=== PATIENT | female | born 1985 | race Caucasian/White ===

== ENCOUNTER 2017-12-05 12:59 | Emergency (ER) | payer SELFPAY ==
[2017-12-05 15:05] LABS: #Basophils 0.1 thou/uL (0.0-0.2); #Eosinphils 0.4 thou/uL (0.0-0.7); #Lymphocytes 3.2 thou/uL (1.20-3.40); #Monocytes 0.6 thou/uL (0.11-0.59); #Neutrophils 5.4 thou/uL (1.40-6.50); %Basophils 1.3 % (0.0-1.0); %Eosinophils 3.8 % (0.0-10.0); %Lymphocytes 32.5 % (21.0-51.0); %Monocytes 6.3 % (0.0-10.0); %Neutrophils 56.1 % (42.0-75.0); Mean Corpuscular HGB CONC 34.1 g/dL (32.0-36.0); Mean Corpuscular Hemoglobin 30.8 pg (27.0-31.0); Mean Corpuscular Volume 90.5 fl (81.0-99.0); Mean Platelet Volume 7.5 fL (7.4-10.4); Platelet Count 296 thou/uL (130-400); RBC Distribution Width 12.2 % (11.5-14.5); White Blood Cell (WBC) Count 9.7 thou/uL (4.8-10.8)
[2017-12-05 15:26] LABS: ALT (SGPT) 23 U/L (8-55); AST (SGOT) 17 U/L (5-34); Albumin 4.2 g/dL (3.5-5.0); Alkaline Phosphatase 68 U/L (40-150); Anion Gap 12 mmol/L (10-20); BUN (Urea Nitrogen) 13 mg/dL (7.0-18.7); Bilirubin, Total 0.5 mg/dL (0.2-1.2); Calc. Creatinine Clearance 0 mL/min (70-130); Calcium 9.4 mg/dL (7.8-10.44); Carbon Dioxide 23 mmol/L (22-29); Chloride 108 mmol/L (98-107); Estimated GFR-MDRD 83; Globulin 3.6 g/dL (2.4-3.5); Glucose 98 mg/dL (70-105); Potassium 4.4 mmol/L (3.5-5.1); Protein, Total 7.8 g/dL (6.0-8.3); Sodium 139 mmol/L (136-145)
[2017-12-05 18:16] LABS: Bilirubin Small (Negative); Blood, Urine Large (Negative); Clarity CLOUDY (Clear); Glucose, Urine (Dipstick) Negative (Negative); Leukocyte Small (Negative); Nitrite Negative (Negative); Protein, Urine (Dipstick) 30 mg/dL (Neg-Trace); Specific Gravity, Urine 1.035 (1.002-1.036); Urobilinogen 0.2 mg/dL (0.2-1.0)
[2017-12-05 18:17] LABS: Bacteria/HPF 1+ HPF (None Seen); Pathc Cast-AUWi Flag 2.16 (0-2.49); Pregnancy Test - Urine (BHCG) Negative (Negative); Pregu Control Background? CLEAR/WHITE (CLR/WHITE); Pregu Control Bar Appear? YES (CONTROL BAR); Specific Gravity 1.035 (1.002-1.036)
[2017-12-05 18:25] LABS: Yeast-AUWi Flag 199.2 (0-25.0)
[2017-12-05 18:26] LABS: Amphetamine Not Detected (NotDetected); Barbiturates Screen Not Detected (NotDetected); Benzodiazepine Screen Detected (NotDetected); Cocaine Metabolite Screen Not Detected (NotDetected); Medtox Control Line Valid? VALID (VALID); Medtox Reader # READER 1; Methadone Not Detected (NotDetected); Methamphetamine Not Detected (NotDetected); Opiate Screen Not Detected (NotDetected); Oxycodone Screen Not Detected (NotDetected); Phencyclidine (PCP) Not Detected (NotDetected); THC/Cannabinoid Screen Detected (NotDetected); Tricyclic Screen Detected (NotDetected)
[2017-12-05 18:30] LABS: Hyaline Casts/LPF 0-3 HYALINE CAST LPF (0-3 Hyaline); RBC/HPF 21-50 HPF (0-3)
[2017-12-05 18:31] LABS: Yeast-All Forms None Seen HPF (None Seen)
--- NOTE | 2017-12-09 13:14 | EKG ---
Test Reason : Blood Pressure : / mmHG Vent. Rate : 068 BPM Atrial Rate : 068 BPM P-R Int : 142 ms QRS Dur : 086 ms QT Int : 390 ms P-R-T Axes : 029 077 058 degrees QTc Int : 414 ms Normal sinus rhythm Normal ECG Confirmed by JET JUAREZ MD ([id number]), art editor MARYURI LAWTON ([id number]) on 12/09/2017 1:14:18 PM Referred By: Confirmed By:JET JUAREZ MD
--- NOTE | 2017-12-09 13:14 | EKG ---
Test Reason : Blood Pressure : / mmHG Vent. Rate : 080 BPM Atrial Rate : 080 BPM P-R Int : 138 ms QRS Dur : 086 ms QT Int : 368 ms P-R-T Axes : 045 086 061 degrees QTc Int : 424 ms Normal sinus rhythm Normal ECG Confirmed by JET JUAREZ MD ([id number]), desk editor MARYURI LAWTON ([id number]) on 12/09/2017 1:14:13 PM Referred By: Confirmed By:JET JUAREZ MD
== END 2017-12-05 18:43 | disposition home or self-care (01) ==
LOC: ERS 12:59
DX: R55 Syncope and collapse (principal); G43.909 Migraine, unspecified, not intractable, without status migrainosus; E66.9 Obesity, unspecified; F41.9 Anxiety disorder, unspecified; F31.9 Bipolar disorder, unspecified; F17.210 Nicotine dependence, cigarettes, uncomplicated; Z79.899 Other long term (current) drug therapy; Z87.442 Personal history of urinary calculi
CPT/HCPCS: 36415; 80053; 80306; 81003; 81015; 81025; 84146; 85025; 93005

== ENCOUNTER 2018-02-21 13:48 | Emergency (ER) | payer SELFPAY ==
[2018-02-21 14:52] LABS: #Basophils 0.1 thou/uL (0.0-0.2); #Eosinphils 0.4 thou/uL (0.0-0.7); #Lymphocytes 2.9 thou/uL (1.20-3.40); #Monocytes 0.5 thou/uL (0.11-0.59); #Neutrophils 4.4 thou/uL (1.40-6.50); %Basophils 1.4 % (0.0-1.0); %Eosinophils 4.7 % (0.0-10.0); %Lymphocytes 34.7 % (21.0-51.0); %Monocytes 6.5 % (0.0-10.0); %Neutrophils 52.8 % (42.0-75.0); Hemoglobin 16.1 g/dL (12.0-16.0); Mean Corpuscular HGB CONC 34.2 g/dL (32.0-36.0); Mean Corpuscular Hemoglobin 30.7 pg (27.0-31.0); Mean Corpuscular Volume 89.7 fl (81.0-99.0); Mean Platelet Volume 8.3 fL (7.4-10.4); Platelet Count 286 thou/uL (130-400); RBC Distribution Width 12.1 % (11.5-14.5); Red Blood Cell (RBC) Count 5.26 mill/uL (4.20-5.40); White Blood Cell (WBC) Count 8.4 thou/uL (4.8-10.8)
[2018-02-21 15:14] LABS: ALT (SGPT) 28 U/L (8-55); AST (SGOT) 21 U/L (5-34); Albumin 4.1 g/dL (3.5-5.0); Alkaline Phosphatase 70 U/L (40-150); Anion Gap 8 mmol/L (10-20); BUN (Urea Nitrogen) 8 mg/dL (7.0-18.7); Bilirubin, Total 0.3 mg/dL (0.2-1.2); Calc. Creatinine Clearance 0 mL/min (70-130); Carbon Dioxide 24 mmol/L (22-29); Chloride 108 mmol/L (98-107); Estimated GFR-MDRD 90; Globulin 3.5 g/dL (2.4-3.5); Glucose 91 mg/dL (70-105); Potassium 4.2 mmol/L (3.5-5.1); Protein, Total 7.6 g/dL (6.0-8.3); Sodium 136 mmol/L (136-145)
[2018-02-21 15:25] LABS: Bilirubin Negative (Negative); Blood, Urine Negative (Negative); Clarity CLEAR (Clear); Glucose, Urine (Dipstick) Negative (Negative); Leukocyte Negative (Negative); Nitrite Negative (Negative); Protein, Urine (Dipstick) Negative (Neg-Trace); Urobilinogen 0.2 mg/dL (0.2-1.0)
[2018-02-21 15:27] LABS: Pregnancy Test - Urine (BHCG) Negative (Negative); Pregu Control Background? CLEAR/WHITE (CLR/WHITE); Pregu Control Bar Appear? YES (CONTROL BAR)
[2018-02-21] MEDS ORDERED: Acetaminophen 500 MG TAB ONE (17:05)
[2018-02-21] MEDS ORDERED: methylPREDNISolone Sod Succ/PF 125 MG/2 ML VIAL ONE (17:06)
--- NOTE | 2018-02-21 17:07 | CT ---
CT BRAIN 02/21/18 HISTORY: Headache. Noncontrast enhanced CT images of the brain is obtained. CT images of the brain demonstrate the brain to be unremarkable. No evidence of intracranial masses, hemorrhages, strokes or contusions seen. the sinuses are well aerated. No evidence of acute intracran ial abnormality seen. IMPRESSION: Normal CT brain. POS: [facility]
[2018-02-21] MEDS ORDERED: Metoclopramide HCl 10 MG/2 ML VIAL ONE (17:15)
== END 2018-02-21 19:23 | disposition home or self-care (01) ==
LOC: ERS 13:48
DX: G43.909 Migraine, unspecified, not intractable, without status migrainosus (principal); E66.9 Obesity, unspecified; F31.9 Bipolar disorder, unspecified; F41.9 Anxiety disorder, unspecified; F17.210 Nicotine dependence, cigarettes, uncomplicated; Z79.899 Other long term (current) drug therapy
CPT/HCPCS: 36415; 70450; 80053; 81003; 81025; 85025; 85652; 86140; 96365; 96375; J2765; J2930

== ENCOUNTER 2022-12-30 07:59 | Outpatient (CLI) | payer BC | END 2022-12-30 08:00 | disposition home or self-care (01) | LOC: TBSIIMAG 07:59 | PROVIDERS: ATTEND Neurological Surgery | DX: M51.26 Other intervertebral disc displacement, lumbar region (principal); M51.27 Other intervertebral disc displacement, lumbosacral region | CPT/HCPCS: 72148 ==

== ENCOUNTER 2024-02-25 13:04 | Observation (INO) | payer BC ==
[~2024-02-25 13:04] MED LIST: Iopamidol-370 76% 500 ML MDV (1 ML CHARGE) ONE
[2024-02-25] MEDS ORDERED: Prochlorperazine 10 MG/2 ML VIAL ONE (13:25)
[2024-02-25] MEDS ORDERED: LORazepam 2 MG/ML SYR.(CARPUJECT) ONE (13:25)
[2024-02-25 13:44] LABS: %Basophils 0.9 % (0.0-1.0); %Lymphocytes 20.9 % (21.0-51.0); %Neutrophils 69.9 % (42.0-75.0); Hematocrit 38.3 % (36.0-47.0); Hemoglobin 12.8 g/dL (12.0-16.0); Mean Corpuscular HGB CONC 33.4 g/dL (32.0-36.0); Mean Corpuscular Hemoglobin 27.2 pg (27.0-31.0); Mean Corpuscular Volume 81.5 fL (78.0-98.0); Mean Platelet Volume 10.7 fL (7.4-10.4); Platelet Count 301 10x3/uL (130-400); RBC Distribution Width 14.8 % (11.5-14.5)
[2024-02-25 13:46] LABS: Actual Bicarbonate (HCO3v) 18.6 mEq/L (22-28); Base Excess -2.8 mEq/L (-2.0 to +3.0); Calcium, Ionized (venous) 1.13 mmol/L (1.16-1.32); Chloride (VBG) 104 mmol/L (98-106); Hematocrit-VBG 41 % (36.0-47.0); Sodium 141 mmol/L (133-146); pH (venous) 7.499 (7.32-7.43)
[2024-02-25 13:54] LABS: BHCG - Serum Negative (NEGATIVE); Pregs Control Background? CLEAR/WHITE (CLR/WHITE); Pregs Control Bar Appear? YES (CONTROL BAR)
[2024-02-25 14:03] LABS: ALT (SGPT) 106 U/L (8-55); AST (SGOT) 92 U/L (5-34); Albumin 3.9 g/dL (3.5-5.0); Alkaline Phosphatase 77 U/L (40-110); Anion Gap 18 mmol/L (10-20); BUN (Urea Nitrogen) 9 mg/dL (7.0-18.7); Bilirubin, Total 0.5 mg/dL (0.2-1.2); Calc. Creatinine Clearance 0 mL/min (70-130); Carbon Dioxide 18 mmol/L (22-29); Chloride 108 mmol/L (98-107); Estimated GFR 83; Globulin 4.2 g/dL (2.4-3.5); Glucose 145 mg/dL (70-105); Magnesium 1.7 mg/dL (1.6-2.6); Potassium 3.7 mmol/L (3.5-5.1); Protein, Total 8.1 g/dL (6.0-8.3); Sodium 140 mmol/L (136-145)
[2024-02-25 14:04] LABS: Troponin I Less than 0.010 ng/mL (< 0.028)
[2024-02-25 14:05] LABS: INR-International Normal Ratio 1.1; Prothrombin Time 13.9 sec (12.0-14.7)
[2024-02-25 14:26] LABS: D-Dimer Test 0.35 mcg/mL (0.27-0.43)
[2024-02-25] MEDS ORDERED: Morphine 4 MG/ML VIAL ONE (14:30)
[2024-02-25 16:41] LABS: Lactic Acid 1.3 mmol/L (0.5-2.2)
[2024-02-25] MEDS ORDERED: Guaifenesin DM 100-10/5 ML UDCUP PO PRN (17:31)
[2024-02-25] MEDS ORDERED: Ondansetron ODT 4 MG TAB PO PRN (17:31)
[2024-02-25] MEDS ORDERED: Calcium Carbonate 500 MG ChewTAB PO PRN (17:31)
[2024-02-25] MEDS ORDERED: Dicyclomine 20 MG TAB PO PRN (18:40)
[2024-02-25] MEDS ORDERED: HumaLOG 300 UNITS/3 ML VIAL SC PRN ×2 (18:43)
[2024-02-25] MEDS ORDERED: Dextrose 50% Abboject 50 ML SYRINGE SLOW IVP PRN (18:43)
[2024-02-25] MEDS ORDERED: Glucagon 1 MG/ML KIT IM PRN (18:43)
[2024-02-25] MEDS ORDERED: Dextrose 5% in Water 1,000 ML IV PRN (18:43)
[2024-02-25] MEDS ORDERED: RISANKIZUMAB RZAA 150 MG/ML SQ SCH (18:45)
[2024-02-25] MEDS ORDERED: Ondansetron ODT 8 MG TAB PO PRN (18:48)
[2024-02-25 18:51] LABS: Cardiac Risk 4.1 (Less than 4.5); Cholesterol 132 mg/dl (< 200 Desired); HDL Cholesterol 32 mg/dL (>60 Neg Risk); LDL Cholesterol, Calculated 71 mg/dL; Magnesium 1.8 mg/dL (1.6-2.6); Phosphorus 3.8 mg/dL (2.3-4.7); Triglycerides 144 mg/dL (Less than 150)
[2024-02-25 18:57] LABS: Troponin I Less than 0.010 ng/mL (< 0.028)
[2024-02-25 19:07] LABS: Hemoglobin A1c 6.8 % (4.0-6.0)
[2024-02-25 19:41] LABS: Acetaminophen Less than 10 mcg/mL (10.0-30.0); Alcohol Less than 10.0 mg/dL (Less than 10); Salicylate Less than 8.0 mg/dL (15.0-30.0)
[2024-02-25 20:03] LABS: HBCM Index 0.09 S/CO (0-0.79); HBsAg Index 0.22 S/CO (0-0.99); Hep A IgM AB NONREACTIVE (NonReactive); Hep A IgM S/CO 0.19 S/CO (0-0.79); Hep B Surf Ag NONREACTIVE S/CO (NonReactive); Hep C IgG Ab NONREACTIVE S/CO (NonReactive); Hep C Index 0.13 S/CO (0-0.79); Hepatitis B Core IgM Abs NONREACTIVE S/CO (NonReactive)
[2024-02-25 21:54] VITALS: BMI 37.2
[2024-02-25] MEDS: Amitriptyline HCl 100 MG TAB PO SCH (23:12)
[2024-02-25] MEDS: Lactated Ringer's 1,000 ML IV SCH (23:12)
[2024-02-25] MEDS: Gabapentin 300 MG CAP PO PRN (23:12)
[2024-02-25] MEDS: Rosuvastatin 10 MG TAB PO SCH (23:12)
[2024-02-25] MEDS: Acetaminophen 325 MG TAB PO PRN (23:14)
[2024-02-25] MEDS: Betamethasone 0.1% Cream 15 GM TUBE TOP SCH (23:15)
[2024-02-25] MEDS: Ondansetron PF 4 MG/2 ML Vial IVP PRN (23:40)
[2024-02-26 00:21] LABS: Troponin I Less than 0.010 ng/mL (< 0.028)
[2024-02-26 01:56] LABS: Amphetamine Detected (NotDetected); Barbiturates Screen Not Detected (NotDetected); Benzodiazepine Screen Detected (NotDetected); Cocaine Metabolite Screen Not Detected (NotDetected); Methadone Not Detected (NotDetected); Methamphetamine Not Detected (NotDetected); Opiate Screen Detected (NotDetected); Oxycodone Screen Not Detected (NotDetected); Phencyclidine (PCP) Not Detected (NotDetected); THC/Cannabinoid Screen Not Detected (NotDetected); Tricyclic Screen Detected (NotDetected)
[2024-02-26] MEDS: Metoclopramide HCl 10 MG (2 mL) VIAL IVP SCH (03:41)
[2024-02-26 04:30] LABS: #Basophils 0.08 10x3/uL (0.0-0.2); %Basophils 1.1 % (0.0-1.0); %Eosinophils 3.5 % (0.0-10.0); %Lymphocytes 36.4 % (21.0-51.0); %Monocytes 5.3 % (0.0-10.0); %Neutrophils 53.4 % (42.0-75.0); Hematocrit 35.7 % (36.0-47.0); Hemoglobin 11.5 g/dL (12.0-16.0); Mean Corpuscular HGB CONC 32.2 g/dL (32.0-36.0); Mean Corpuscular Hemoglobin 26.3 pg (27.0-31.0); Mean Corpuscular Volume 81.7 fL (78.0-98.0); Mean Platelet Volume 11.1 fL (7.4-10.4); Platelet Count 257 10x3/uL (130-400); RBC Distribution Width 15.1 % (11.5-14.5); Red Blood Cell (RBC) Count 4.37 mill/uL (4.20-5.40)
[2024-02-26 04:54] LABS: ALT (SGPT) 106 U/L (8-55); AST (SGOT) 90 U/L (5-34); Albumin 3.4 g/dL (3.5-5.0); Alkaline Phosphatase 71 U/L (40-110); Anion Gap 12 mmol/L (10-20); BUN (Urea Nitrogen) 7 mg/dL (7.0-18.7); Bilirubin, Total 0.5 mg/dL (0.2-1.2); Calcium 9.2 mg/dL (7.8-10.44); Carbon Dioxide 25 mmol/L (22-29); Chloride 108 mmol/L (98-107); Globulin 3.6 g/dL (2.4-3.5); Glucose 130 mg/dL (70-105); Potassium 3.6 mmol/L (3.5-5.1); Sodium 141 mmol/L (136-145)
[2024-02-26 05:06] LABS: Calc. Creatinine Clearance 172 mL/min (70-130); Estimated GFR 102
[2024-02-26] MEDS ORDERED: Non-Formulary Item 1 EACH (Plecanatide [Trulance] 3 MG Tablet) PO SCH (09:00)
[2024-02-26] MEDS: Enoxaparin 40 MG (0.4 mL) SYRINGE SC SCH (09:14)
[2024-02-26] MEDS: Meclizine HCl 12.5 MG TAB PO PRN (18:03)
[2024-02-26] MEDS: clonazePAM 1 MG TAB PO PRN (21:27)
[2024-02-27 05:32] LABS: #Basophils 0.08 10x3/uL (0.0-0.2); %Basophils 1.1 % (0.0-1.0); %Eosinophils 4.6 % (0.0-10.0); %Lymphocytes 35.7 % (21.0-51.0); %Monocytes 6.9 % (0.0-10.0); %Neutrophils 51.4 % (42.0-75.0); Hematocrit 35.3 % (36.0-47.0); Hemoglobin 11.3 g/dL (12.0-16.0); Mean Corpuscular Hemoglobin 27.3 pg (27.0-31.0); Mean Corpuscular Volume 85.3 fL (78.0-98.0); Mean Platelet Volume 10.9 fL (7.4-10.4); Platelet Count 255 10x3/uL (130-400); RBC Distribution Width 15.6 % (11.5-14.5); Red Blood Cell (RBC) Count 4.14 mill/uL (4.20-5.40)
[2024-02-27 06:25] LABS: ALT (SGPT) 92 U/L (8-55); AST (SGOT) 72 U/L (5-34); Albumin 3.4 g/dL (3.5-5.0); Alkaline Phosphatase 71 U/L (40-110); Anion Gap 15 mmol/L (10-20); BUN (Urea Nitrogen) 8 mg/dL (7.0-18.7); Bilirubin, Total 0.4 mg/dL (0.2-1.2); Calc. Creatinine Clearance 158 mL/min (70-130); Calcium 9.3 mg/dL (7.8-10.44); Carbon Dioxide 24 mmol/L (22-29); Chloride 106 mmol/L (98-107); Estimated GFR 91; Globulin 3.7 g/dL (2.4-3.5); Glucose 144 mg/dL (70-105); Protein, Total 7.1 g/dL (6.0-8.3); Sodium 141 mmol/L (136-145)
[2024-02-27 11:41] VITALS: BP 129/82; TEMP 97.8
[2024-03-03] MEDS ORDERED: Non-Formulary Item 1 EACH (Semaglutide [Ozempic] 2 MG/0.75 ML Pen.Injctr) SQ SCH (09:00)
== END 2024-02-27 12:22 | disposition home or self-care (01) ==
LOC: ERS 13:04 → 2SE 17:31
PROVIDERS: ADMIT Emergency Medicine; ATTEND Emergency Medicine
PROC: B246ZZ4 Ultrasonography of Right and Left Heart, Transesophageal (ICD-10-PCS; principal; 2024-02-27)
DX: H81.10 Benign paroxysmal vertigo, unspecified ear (principal); E16.2 Hypoglycemia, unspecified; R55 Syncope and collapse; R00.0 Tachycardia, unspecified; R53.1 Weakness; E87.20 Acidosis, unspecified; E87.3 Alkalosis; G43.909 Migraine, unspecified, not intractable, without status migrainosus; E66.9 Obesity, unspecified; L40.9 Psoriasis, unspecified; R74.01 Elevation of levels of liver transaminase levels; E11.9 Type 2 diabetes mellitus without complications; N80.00 Endometriosis of the uterus, unspecified; F41.9 Anxiety disorder, unspecified; F31.9 Bipolar disorder, unspecified; R41.3 Other amnesia; E86.0 Dehydration; E28.2 Polycystic ovarian syndrome; F17.210 Nicotine dependence, cigarettes, uncomplicated; F12.90 Cannabis use, unspecified, uncomplicated; Z88.8 Allergy status to other drugs, medicaments and biological substances; Z68.37 Body mass index [BMI] 37.0-37.9, adult; Z79.899 Other long term (current) drug therapy; Z79.84 Long term (current) use of oral hypoglycemic drugs; Z90.49 Acquired absence of other specified parts of digestive tract; Z90.89 Acquired absence of other organs; Z98.890 Other specified postprocedural states
CPT/HCPCS: 36415; 36416; 70496; 70498; 70551; 71045; 80053; 80061; 80074; 80143; 80306; 80307; 82550; 82805; 83036; 83605; 83735; 84100; 84443; 84484; 84703; 85025; 85379; 85610; 85730; 93005; 93306; 94760; 96361; 96372; 96374; 96375; 96376; G0378; J0780; J1650; J2060; J2270; J2405; J2765; J7120; Q9967

== ENCOUNTER 2025-05-06 10:58 | Outpatient (CLI) | payer OTHER | END 2025-05-06 10:59 | disposition home or self-care (01) | LOC: ULT 10:58 | PROVIDERS: ATTEND Family Medicine | DX: R74.8 Abnormal levels of other serum enzymes (principal); R16.0 Hepatomegaly, not elsewhere classified; K76.0 Fatty (change of) liver, not elsewhere classified | CPT/HCPCS: 76705 ==